=== PATIENT | male | born 1960 | race Caucasian/White ===

== ENCOUNTER 2016-11-09 12:05 | Emergency (ER) | payer MEDICARE, OTHER ==
[~2016-11-09 12:05] MED LIST: ZOLOFT100 MG PO
[2016-11-09 14:09] LABS: HEMOGLOBIN 13.2 gm/dl (14.0-17.5); RED BLOOD COUNT 4.47 M/UL (4.20-5.50); WHITE BLOOD COUNT 7.9 K/UL (4.5-11.0)
[2016-11-09 14:30] LABS: BUN/CREATININE RATIO 21 (0-10)
== END 2016-11-09 17:43 | disposition home or self-care (01) ==
LOC: ER1 12:05
PROVIDERS: Emergency Medicine
DX: R22.42 Localized swelling, mass and lump, left lower limb (principal); Z23 Encounter for immunization
CPT/HCPCS: 73590; 80053; 85025; 85610; 85730; 90471; 90715; 93970; 96374; 99284; J0696

== ENCOUNTER 2021-03-11 17:03 | Emergency (ER) | payer MEDICARE, OTHER ==
[2021-03-11 19:23] LABS: HEMOGLOBIN 12.9 gm/dl (14.0-17.5); RED BLOOD COUNT 4.53 M/UL (4.20-5.50); WHITE BLOOD COUNT 10.7 K/UL (4.5-11.0)
[2021-03-11 19:47] LABS: BUN/CREATININE RATIO 9 (0-10)
== END 2021-03-12 08:30 | disposition home or self-care (01) ==
LOC: ER1 17:03
PROVIDERS: Emergency Medicine
DX: U07.1 COVID-19 (principal); Z23 Encounter for immunization
CPT/HCPCS: 71045; 80053; 85025; 99283; M0243; U0002

== ENCOUNTER 2021-03-13 22:10 | Emergency (ER) | payer MEDICARE, OTHER ==
[2021-03-14 00:16] LABS: HEMOGLOBIN 11.9 gm/dl (14.0-17.5); RED BLOOD COUNT 4.22 M/UL (4.20-5.50)
[2021-03-14 00:53] LABS: BUN/CREATININE RATIO 14 (0-10)
[2021-03-14] MEDS ORDERED: PROAIR HFA8.5 GM INH (02:49)
[2021-03-14] MEDS ORDERED: MUCINEX1200 MG PO (02:49)
== END 2021-03-14 03:00 | disposition home or self-care (01) ==
LOC: ER1 22:10
PROVIDERS: Physician Assistant
DX: U07.1 COVID-19 (principal); J40 Bronchitis, not specified as acute or chronic; F17.200 Nicotine dependence, unspecified, uncomplicated; Z23 Encounter for immunization
CPT/HCPCS: 36600; 71045; 80053; 82550; 82553; 82803; 83874; 84484; 85025; 93005; 99285; M0243

== ENCOUNTER 2021-09-01 11:38 | Emergency (ER) | payer OTHER, MEDICARE ==
[~2021-09-01 11:38] MED LIST changes: +MUCINEX1200 MG PO; +PROAIR HFA8.5 GM INH
[2021-09-01] MEDS ORDERED: CYCLOBENZAPRINE10 MG PO (13:50)
[2021-09-01] MEDS ORDERED: IBUPROFEN800 MG PO (13:50)
== END 2021-09-01 15:00 | disposition home or self-care (01) ==
LOC: ER1 11:38
DX: S29.012A Strain of muscle and tendon of back wall of thorax, initial encounter (principal); F17.200 Nicotine dependence, unspecified, uncomplicated; V49.9XXA Car occupant (driver) (passenger) injured in unspecified traffic accident, initial encounter
CPT/HCPCS: 72125; 99284